=== PATIENT | female | born 2000 | race Caucasian/White ===

== ENCOUNTER 2023-07-16 13:33 | Emergency (ER) | payer BC, OTHER ==
[~2023-07-16] VITALS: Ht 175.3 cm; Wt 72.4 kg
[2023-07-16] MEDS ORDERED: ONDA4TAB6 (13:46)
[2023-07-16] MEDS ORDERED: FAMO20TA5 (13:46)
[2023-07-16 14:07] LABS: BASO # 0.1 10^3/uL (0.0-0.2); BASO % 0.6 % (0.0-1.0); EOS # 0.1 10^3/uL (0.0-0.5); EOS % 0.8 % (0.0-3.0); HEMATOCRIT 39.6 % (36.0-47.0); HEMOGLOBIN 13.5 g/dl (12.0-15.5); LYMPH % 20.7 % (24.0-44.0); MEAN CORPUSCULAR HEMOGLOBIN 31.6 pg (27.0-33.0); MEAN CORPUSCULAR HGB CONC 34.1 g/dl (32.0-36.5); MEAN CORPUSCULAR VOLUME 92.7 fl (80.0-96.0); MONO # 0.6 10^3/uL (0.0-0.8); MONO % 6.7 % (2.0-8.0); NEUTROPHILS # 6.8 10^3/uL (1.5-8.5); PLATELET COUNT, AUTOMATED 236 10^3/uL (150-450); RED BLOOD COUNT 4.27 10^6/uL (4.00-5.40); WHITE BLOOD COUNT 9.6 10^3/uL (4.0-10.0)
[2023-07-16 14:29] LABS: LIPASE 36 U/L (12-53)
[2023-07-16 14:31] LABS: ALBUMIN 3.9 G/DL (3.2-5.2); ALKALINE PHOSPHATASE 66 U/L (46-116); ALT/SGPT 25 U/L (7.0-40); AST/SGOT 19 U/L (<34); BILIRUBIN,DIRECT 0.2 MG/DL (<0.4); BILIRUBIN,TOTAL 0.6 MG/DL (0.3-1.2); BLOOD UREA NITROGEN 13 MG/DL (9-23); CALCIUM LEVEL 8.9 MG/DL (8.5-10.1); CARBON DIOXIDE LEVEL 27 MMOL/L (20-31); CHLORIDE LEVEL 108 MMOL/L (98-107); CREATININE FOR GFR 0.74 MG/DL (0.55-1.30); GLOMERULAR FILTRATION RATE > 60.0 (>60); GLUCOSE, FASTING 92 MG/DL (60-100); POTASSIUM SERUM 3.9 MMOL/L (3.5-5.1); SODIUM LEVEL 141 MMOL/L (136-145); TOTAL PROTEIN 6.6 G/DL (5.7-8.2)
[2023-07-16 14:36] LABS: HCG, SERUM QUALITATIVE NEGATIVE (NEGATIVE)
[2023-07-16] MEDS: MAALOX 30 ML SUSP *UDC PO ONE (18:21)
[2023-07-16] MEDS: NS 1,000 ML IV ONE (18:21)
[2023-07-16] MEDS: SUCRALFATE SUSP 1GM/10ML UD PO ONE (18:21)
[2023-07-16] MEDS: ACETAMINOPHEN TAB 650MG DOSE (2X325MG) PO ONE (19:10)
[2023-07-16] MEDS ORDERED: MYLA1SUS PO (19:58)
[2023-07-16] MEDS ORDERED: SUCR1SS PO (19:58)
[2023-07-16 20:06] VITALS: BP 108/59; TEMP 98.8; O2SAT 100
== END 2023-07-16 20:16 | disposition home or self-care (01) ==
LOC: M ED 13:33
DX: R13.10 Dysphagia, unspecified (principal); Z79.83 Long term (current) use of bisphosphonates; Z79.810 Long term (current) use of selective estrogen receptor modulators (SERMs); Z79.899 Other long term (current) drug therapy